=== PATIENT | female | born 1960 | race Caucasian/White ===

== ENCOUNTER 2017-07-28 08:07 | Emergency (ER) | payer BC, MEDICAID ==
[~2017-07-28] VITALS: Ht 157.5 cm; Wt 87.2 kg
[2017-07-28 09:13] LABS: BASOPHILS % (AUTO) 0.4 % (0.0-2.0); EOSINOPHILS % (AUTO) 0.1 % (1.0-6.0); HEMATOCRIT 40.2 % (36-46); HEMOGLOBIN 14.3 g/dL (12.0-16.0); LYMPHOCYTES # (AUTO) 1.1 K/uL (1.0-4.8); LYMPHOCYTES % (AUTO) 9.6 % (22.0-44.0); MEAN CORPUSCULAR HEMOGLOBIN 30.8 pg (26.0-34.0); MEAN CORPUSCULAR HGB CONC 35.6 G/dL (31.0-37.0); MEAN CORPUSCULAR VOLUME 87 fL (80-100); MONOCYTES # (AUTO) 0.3 K/uL (0.1-1.0); MONOCYTES % (AUTO) 2.8 % (2.0-9.0); NEUTROPHILS # (AUTO) 10.2 K/uL (1.8-7.7); PLATELET COUNT (AUTO) 367 K/uL (150-450); RED BLOOD CELL COUNT(AUTO) 4.65 MIL/uL (4.00-5.20); RED CELL DISTRIBUTION WIDTH 13.1 % (11.5-14.5)
[2017-07-28 09:15] LABS: NEUTROPHILS % (AUTO) 87.1 % (40.0-70.0)
[2017-07-28 09:22] LABS: ANION GAP 11 mmol/L (8-16); CALCIUM, TOTAL 9.6 mg/dL (8.8-10.5); CARBON DIOXIDE 26 mmol/L (22-29); CHLORIDE 101 mmol/L (98-107); CREATININE 0.91 mg/dL (0.60-1.30); GLOMERULAR FILTR. RATE CALC > 60 mL/min (>60); GLUCOSE,RANDOM 206 mg/dL (70-110); POTASSIUM 3.7 mmol/L (3.5-5.1); SODIUM SERUM 138 mmol/L (136-145); UREA NITROGEN, BLOOD 14 mg/dL (7-18)
[2017-07-28 09:25] LABS: ALANINE AMINOTRANSFERASE 31 U/L (12-78); ALBUMIN 4.2 g/dL (3.4-5.0); ALKALINE PHOSPHATASE 113 U/L (46-116); ASPARTATE AMINOTRANSFERASE 24 U/L (15-37); BILIRUBIN,TOTAL 0.3 mg/dL (0.1-1.0); TOTAL PROTEIN, SERUM 8.5 g/dL (6.4-8.2)
[2017-07-28] MEDS ORDERED: ARIP15TA2 PO (09:59)
[2017-07-28] MEDS ORDERED: TRAZ-147 PO (09:59)
[2017-07-28 10:17] LABS: AMPHET/METH SCREEN,URINE NEGATIVE (NEGATIVE); BARBITURATE SCREEN, URINE NEGATIVE (NEGATIVE); BENZODIAZEPINES SCREEN,URINE NEGATIVE (NEGATIVE); CANNABINOID SCREEN,URINE NEGATIVE (NEGATIVE); COCAINE SCREEN,URINE NEGATIVE (NEGATIVE); METHADONE SCREEN, URINE NEGATIVE (NEGATIVE); OPIATE SCREEN,URINE NEGATIVE (NEGATIVE)
[2017-07-28 10:19] LABS: PHENCYCLIDINE SCREEN,URINE NEGATIVE (NEGATIVE)
[2017-07-28 12:18] VITALS: BP 121/77
== END 2017-07-28 14:55 | disposition home or self-care (01) ==
LOC: EMS 08:09
DX: F22 Delusional disorders (principal); F17.210 Nicotine dependence, cigarettes, uncomplicated
CPT/HCPCS: 36415; 80053; 80307; 85025; 99285; G0480

== ENCOUNTER 2022-04-19 19:15 | Inpatient (IN) | payer BC, MEDICAID, OTHER ==
[~2022-04-19] VITALS: Ht 160 cm; Wt 87.6 kg
[~2022-04-19 19:15] MED LIST: ARIP15TA27 PO; TRAZ-257 PO
[2022-04-19 21:35] LABS: EOSINOPHILS % (AUTO) 1.1 % (1.0-6.0); HEMATOCRIT 39.2 % (36-46); HEMOGLOBIN 13.3 g/dL (12.0-16.0); LYMPHOCYTES # (AUTO) 2.7 K/uL (1.0-4.8); LYMPHOCYTES % (AUTO) 28.9 % (22.0-44.0); MEAN CORPUSCULAR HEMOGLOBIN 30.4 pg (26.0-34.0); MEAN CORPUSCULAR VOLUME 90 fL (80-100); MONOCYTES # (AUTO) 0.5 K/uL (0.1-1.0); MONOCYTES % (AUTO) 5.6 % (2.0-9.0); NEUTROPHILS % (AUTO) 63.4 % (40.0-70.0); PLATELET COUNT (AUTO) 428 K/uL (150-450); RED BLOOD CELL COUNT(AUTO) 4.38 MIL/uL (4.00-5.20); RED CELL DISTRIBUTION WIDTH 13.7 % (11.5-14.5)
[2022-04-19 21:45] LABS: ANION GAP 6 mmol/L (8-16); CALCIUM, TOTAL 9.1 mg/dL (8.8-10.5); CARBON DIOXIDE 28 mmol/L (22-29); CHLORIDE 104 mmol/L (98-107); CREATININE 0.54 mg/dL (0.60-1.30); GLUCOSE,RANDOM 150 mg/dL (70-110); POTASSIUM 3.8 mmol/L (3.5-5.1); SODIUM SERUM 138 mmol/L (136-145); UREA NITROGEN, BLOOD 6 mg/dL (7-18)
[2022-04-19 21:47] LABS: GLOMERULAR FILTR. RATE CALC > 60 mL/min (>60)
[2022-04-19 21:50] LABS: ALANINE AMINOTRANSFERASE 18 U/L (12-78); ALBUMIN 3.8 g/dL (3.4-5.0); ALKALINE PHOSPHATASE 83 U/L (46-116); ASPARTATE AMINOTRANSFERASE 18 U/L (15-37); BILIRUBIN,TOTAL 0.3 mg/dL (0.1-1.0); TOTAL PROTEIN, SERUM 7.9 g/dL (6.4-8.2)
[2022-04-19 23:31] LABS: COVID AG,FIA SOURCE NASOPHARYNGEAL
[2022-04-20 03:29] VITALS: BP 140/68
[2022-04-20 08:00] VITALS: BP 143/88
[2022-04-20 09:25] LABS: APPEARANCE,URINE HAZY (CLEAR); BILIRUBIN,URINE NEGATIVE (NEGATIVE); GLUCOSE, URINE (UA) >=1000 mg/dL (NEGATIVE); KETONES,URINE TRACE mg/dL (NEGATIVE); LEUKOCYTE ESTERASE ,URINE NEGATIVE (NEGATIVE); NITRATE,URINE NEGATIVE (NEGATIVE); OCCULT BLOOD,URINE NEGATIVE (NEGATIVE); PROTEIN,URINE TRACE mg/dL (NEGATIVE); SPECIFIC GRAVITIY, URINE 1.021 (1.003-1.030)
[2022-04-20 09:29] LABS: AMPHET/METH SCREEN,URINE NEGATIVE (NEGATIVE); BARBITURATE SCREEN, URINE NEGATIVE (NEGATIVE); BENZODIAZEPINES SCREEN,URINE POSITIVE (NEGATIVE); CANNABINOID SCREEN,URINE NEGATIVE (NEGATIVE); COCAINE SCREEN,URINE NEGATIVE (NEGATIVE); METHADONE SCREEN, URINE NEGATIVE (NEGATIVE); OPIATE SCREEN,URINE NEGATIVE (NEGATIVE)
[2022-04-20 09:30] LABS: PHENCYCLIDINE SCREEN,URINE NEGATIVE (NEGATIVE)
[2022-04-20 10:00] LABS: BACTERIA,URINE None Seen /HPF (None Seen); RBC,URINE 0-2 /HPF (0-2); WBC,URINE 0-2 /HPF (0-5)
[2022-04-20] MEDS: ARIPiprazole 15 MG TABLET PO SCH ×2 (10:08→16:47)
[2022-04-20] MEDS ORDERED: CloNIDine HCL 0.1 MG TABLET PO PRN (16:00)
[2022-04-20] MEDS ORDERED: GuaiFENesin/D-METHORPHAN [SUGAR-FREE] 200-20MG/10 ML SYRUP UDCUP PO PRN (16:00)
[2022-04-20] MEDS ORDERED: NICOTINE 14 MG/24 HOUR PATCH TD PRN (16:00)
[2022-04-20] MEDS ORDERED: MAGNESIUM HYDROXIDE SUSPENSION 30 ML UDCUP PO PRN (16:00)
[2022-04-20] MEDS ORDERED: MAG HYDROX/AL HYDROX/SIMETH ES 30 ML SUSPENSION UDCUP PO PRN (16:00)
[2022-04-20] MEDS ORDERED: ONDANSETRON HCL 4 MG TABLET PO PRN (16:00)
[2022-04-20] MEDS ORDERED: LOPERAMIDE HCL 2 MG CAPSULE PO PRN (16:00)
[2022-04-20] MEDS ORDERED: PETROLATUM,WHITE 28 GM JELLY TP PRN (16:00)
[2022-04-20] MEDS ORDERED: ACETAMINOPHEN 325 MG TABLET PO PRN (16:00)
[2022-04-20] MEDS ORDERED: DOCUSATE SODIUM 100 MG CAPSULE PO PRN (16:00)
[2022-04-20] MEDS ORDERED: ALBUTEROL SULFATE HFA 90 MCG/PUFF 8 GM INHALER IH PRN (16:00)
[2022-04-20] MEDS ORDERED: IBUPROFEN 400 MG TABLET PO PRN (16:00)
[2022-04-20 16:20] VITALS: BP 133/63
[2022-04-20] MEDS: LORazepam 2 MG TABLET PO PRN (20:00)
[2022-04-20] MEDS: HALOPERIDOL 5 MG TABLET PO PRN (20:00)
[2022-04-20] MEDS: TraZODone HCL 100 MG TABLET PO SCH (20:02)
[2022-04-21] MEDS: ZOLPIDEM TARTRATE 10 MG TABLET PO PRN (02:36)
[2022-04-21] MEDS: ARIPiprazole 15 MG TABLET PO SCH ×2 (08:39→16:46)
[2022-04-21 09:07] VITALS: BP 150/83
[2022-04-21 16:38] VITALS: BP 147/75
[2022-04-21] MEDS: HALOPERIDOL 5 MG TABLET PO PRN (19:50)
[2022-04-21] MEDS: LORazepam 2 MG TABLET PO PRN (19:50)
[2022-04-21] MEDS: TraZODone HCL 100 MG TABLET PO SCH (21:13)
[2022-04-22] MEDS: ARIPiprazole 15 MG TABLET PO SCH ×2 (08:36→17:18)
[2022-04-22] MEDS: HALOPERIDOL 5 MG TABLET PO PRN ×2 (08:36→20:15)
[2022-04-22 08:47] VITALS: BP 154/78
[2022-04-22 16:05] VITALS: BP 147/80
[2022-04-22] MEDS: LORazepam 2 MG TABLET PO PRN (20:15)
[2022-04-22] MEDS: TraZODone HCL 100 MG TABLET PO SCH (20:57)
[2022-04-22] MEDS: ZOLPIDEM TARTRATE 10 MG TABLET PO PRN (23:23)
[2022-04-23 08:49] VITALS: BP 151/80
[2022-04-23] MEDS: ARIPiprazole 15 MG TABLET PO SCH ×2 (09:45→16:26)
[2022-04-23 16:14] VITALS: BP 140/72
[2022-04-23] MEDS: HALOPERIDOL 5 MG TABLET PO PRN (19:30)
[2022-04-23] MEDS: LORazepam 2 MG TABLET PO PRN (19:30)
[2022-04-23] MEDS: TraZODone HCL 100 MG TABLET PO SCH (20:56)
[2022-04-23] MEDS: ZOLPIDEM TARTRATE 10 MG TABLET PO PRN (21:05)
[2022-04-24] MEDS: ARIPiprazole 15 MG TABLET PO SCH ×2 (08:17→17:09)
[2022-04-24 08:42] VITALS: BP 128/58
[2022-04-24 08:43] VITALS: BP 128/58
[2022-04-24 16:02] VITALS: BP 135/80
[2022-04-24] MEDS: TraZODone HCL 100 MG TABLET PO SCH (20:33)
[2022-04-25] MEDS: ARIPiprazole 15 MG TABLET PO SCH ×2 (08:31→16:31)
[2022-04-25 08:55] VITALS: BP 159/68
[2022-04-25 16:04] VITALS: BP 152/76
[2022-04-25] MEDS: TraZODone HCL 100 MG TABLET PO SCH (20:48)
[2022-04-25] MEDS: ZOLPIDEM TARTRATE 10 MG TABLET PO PRN (21:57)
[2022-04-26 04:25] LABS: COVID AG,FIA SOURCE NASAL SWAB
[2022-04-26 08:32] VITALS: BP 128/59
[2022-04-26] MEDS: ARIPiprazole 15 MG TABLET PO SCH ×2 (08:52→17:29)
[2022-04-26 16:07] VITALS: BP 139/61
[2022-04-26] MEDS: TraZODone HCL 100 MG TABLET PO SCH (21:03)
[2022-04-27 08:25] VITALS: BP 148/73
[2022-04-27] MEDS: ARIPiprazole 15 MG TABLET PO SCH ×2 (08:33→16:09)
[2022-04-27 16:03] VITALS: BP 132/64
[2022-04-27] MEDS: TraZODone HCL 100 MG TABLET PO SCH (20:56)
[2022-04-28] MEDS: ARIPiprazole 15 MG TABLET PO SCH ×2 (07:46→16:21)
[2022-04-28 08:19] VITALS: BP 130/72
[2022-04-28 16:04] VITALS: BP 142/71
[2022-04-28] MEDS: TraZODone HCL 100 MG TABLET PO SCH (20:21)
[2022-04-28] MEDS: ZOLPIDEM TARTRATE 10 MG TABLET PO PRN (23:03)
[2022-04-29] MEDS: ARIPiprazole 15 MG TABLET PO SCH ×2 (08:21→16:12)
[2022-04-29 08:30] VITALS: BP 146/78
[2022-04-29 16:09] VITALS: BP 143/72
[2022-04-29] MEDS: TraZODone HCL 100 MG TABLET PO SCH (20:45)
[2022-04-30] MEDS: ARIPiprazole 15 MG TABLET PO SCH (08:12)
[2022-04-30 09:44] VITALS: BP 135/69
[2022-04-30] MEDS ORDERED: ARIP15TA27 PO (10:57)
[2022-04-30] MEDS ORDERED: TRAZ-257 PO (10:57)
== END 2022-04-30 14:02 | disposition home or self-care (01) | DRG 750 ==
LOC: EMS 19:20 → 3EC 04-20 00:01
PROVIDERS: ADMIT Psychiatry & Neurology Child & Adolescent Psychiatry; ATTEND Psychiatry & Neurology Child & Adolescent Psychiatry
DX: F20.9 Schizophrenia, unspecified (principal); R45.851 Suicidal ideations; F41.9 Anxiety disorder, unspecified; F17.200 Nicotine dependence, unspecified, uncomplicated; R73.9 Hyperglycemia, unspecified; Z20.822 Contact with and (suspected) exposure to COVID-19; R81 Glycosuria; E66.9 Obesity, unspecified; Z71.6 Tobacco abuse counseling; Z68.34 Body mass index [BMI] 34.0-34.9, adult
CPT/HCPCS: 80053; 80307; 81001; 85025; 99285; G0480

== ENCOUNTER 2022-05-23 18:29 | Inpatient (IN) | payer MEDICAID, OTHER ==
[~2022-05-23] VITALS: Ht 160 cm; Wt 89.2 kg
[2022-05-23 20:10] LABS: BASOPHILS % (AUTO) 0.5 % (0.0-2.0); EOSINOPHILS % (AUTO) 0 % (1.0-6.0); HEMATOCRIT 41.5 % (36-46); LYMPHOCYTES % (AUTO) 8.6 % (22.0-44.0); MEAN CORPUSCULAR HEMOGLOBIN 30.4 pg (26.0-34.0); MEAN CORPUSCULAR HGB CONC 33.8 G/dL (31.0-37.0); MEAN CORPUSCULAR VOLUME 90 fL (80-100); MONOCYTES # (AUTO) 0.3 K/uL (0.1-1.0); MONOCYTES % (AUTO) 2.4 % (2.0-9.0); NEUTROPHILS # (AUTO) 10.2 K/uL (1.8-7.7); PLATELET COUNT (AUTO) 410 K/uL (150-450); RED BLOOD CELL COUNT(AUTO) 4.61 MIL/uL (4.00-5.20); RED CELL DISTRIBUTION WIDTH 13.7 % (11.5-14.5)
[2022-05-23 20:11] LABS: NEUTROPHILS % (AUTO) 88.5 % (40.0-70.0)
[2022-05-23 20:21] LABS: ANION GAP 12 mmol/L (8-16); CALCIUM, TOTAL 9.2 mg/dL (8.8-10.5); CARBON DIOXIDE 24 mmol/L (22-29); CHLORIDE 104 mmol/L (98-107); CREATININE 0.91 mg/dL (0.60-1.30); GLOMERULAR FILTR. RATE CALC > 60 mL/min (>60); GLUCOSE,RANDOM 235 mg/dL (70-110); POTASSIUM 3.5 mmol/L (3.5-5.1); SODIUM SERUM 140 mmol/L (136-145); UREA NITROGEN, BLOOD 11 mg/dL (7-18)
[2022-05-23 20:34] LABS: ALANINE AMINOTRANSFERASE 19 U/L (12-78); ALBUMIN 4.5 g/dL (3.4-5.0); ALKALINE PHOSPHATASE 80 U/L (46-116); ASPARTATE AMINOTRANSFERASE 22 U/L (15-37); BILIRUBIN,TOTAL 0.3 mg/dL (0.1-1.0); THYROID STIMULATING HORMONE 1.72 uIU/mL (0.36-3.74); TOTAL PROTEIN, SERUM 8.2 g/dL (6.4-8.2)
[2022-05-23] MEDS ORDERED: LORazepam 2 MG/ML VIAL IM ONE (22:15)
[2022-05-23] MEDS ORDERED: HALOPERIDOL LACTATE 5 MG/ML VIAL IM ONE (22:15)
[2022-05-23] MEDS ORDERED: DiphenhydrAMINE HCL 50 MG/ML VIAL IM ONE (22:15)
[2022-05-23 23:01] LABS: COVID AG,FIA SOURCE NASOPHARYNGEAL
[2022-05-24] MEDS ORDERED: ZOLPIDEM TARTRATE 10 MG TABLET PO PRN
[2022-05-24 08:28] LABS: AMPHET/METH SCREEN,URINE POSITIVE (NEGATIVE); BARBITURATE SCREEN, URINE NEGATIVE (NEGATIVE); BENZODIAZEPINES SCREEN,URINE NEGATIVE (NEGATIVE); CANNABINOID SCREEN,URINE NEGATIVE (NEGATIVE); COCAINE SCREEN,URINE NEGATIVE (NEGATIVE); METHADONE SCREEN, URINE NEGATIVE (NEGATIVE); OPIATE SCREEN,URINE NEGATIVE (NEGATIVE); PHENCYCLIDINE SCREEN,URINE NEGATIVE (NEGATIVE)
[2022-05-24 08:31] LABS: APPEARANCE,URINE CLEAR (CLEAR); BILIRUBIN,URINE NEGATIVE (NEGATIVE); GLUCOSE, URINE (UA) >=1000 mg/dL (NEGATIVE); KETONES,URINE 40-60 mg/dL (NEGATIVE); LEUKOCYTE ESTERASE ,URINE LARGE (NEGATIVE); NITRATE,URINE NEGATIVE (NEGATIVE); OCCULT BLOOD,URINE NEGATIVE (NEGATIVE); PROTEIN,URINE NEGATIVE (NEGATIVE); SPECIFIC GRAVITIY, URINE 1.013 (1.003-1.030); UROBILINOGEN,URINE <=1.0 mg/dL (<=1.0)
[2022-05-24 08:43] LABS: BACTERIA,URINE None Seen /HPF (None Seen); RBC,URINE 0-2 /HPF (0-2); SQUAMOUS EPITHELIAL CELL,UR Few /LPF (None Seen); WBC,URINE 26-50 /HPF (0-5)
[2022-05-24 09:45] VITALS: BP 127/79
[2022-05-24] MEDS ORDERED: DiphenhydrAMINE HCL 50 MG/ML VIAL IM ONE ×2 (09:45→11:15)
[2022-05-24] MEDS ORDERED: LORazepam 2 MG/ML VIAL IM ONE ×2 (09:45→11:15)
[2022-05-24] MEDS ORDERED: HALOPERIDOL LACTATE 5 MG/ML VIAL IM ONE (09:45)
[2022-05-24 11:01] LABS: GLUCOMETER DEV NAME(LOC) BV3S.; GLUCOSE,POINT OF CARE 140 MG/DL (70-110)
[2022-05-24] MEDS ORDERED: ChlorproMAZINE HCL 50 MG/2 ML AMP IM ONE (11:15)
[2022-05-24] MEDS: OLANZapine 10 MG TABLET PO SCH (17:38)
[2022-05-25] MEDS: HALOPERIDOL 5 MG TABLET PO PRN (03:09)
[2022-05-25] MEDS: LORazepam 2 MG TABLET PO PRN (03:09)
[2022-05-25] MEDS ORDERED: LORazepam 2 MG/ML VIAL ONE (08:40)
[2022-05-25] MEDS ORDERED: DiphenhydrAMINE HCL 50 MG/ML VIAL ONE (08:40)
[2022-05-25] MEDS ORDERED: HALOPERIDOL LACTATE 5 MG/ML VIAL ONE (08:40)
[2022-05-25] MEDS: OLANZapine 10 MG TABLET PO SCH ×2 (08:43→16:49)
[2022-05-25] MEDS ORDERED: LORazepam 2 MG/ML VIAL IM ONE ×2 (08:45→16:30)
[2022-05-25] MEDS ORDERED: DiphenhydrAMINE HCL 50 MG/ML VIAL IM ONE ×2 (08:45→16:30)
[2022-05-25] MEDS ORDERED: HALOPERIDOL LACTATE 5 MG/ML VIAL IM ONE ×2 (08:45→16:30)
[2022-05-25 08:54] VITALS: BP 111/69
[2022-05-26] MEDS: LORazepam 2 MG TABLET PO PRN ×3 (08:21→21:08)
[2022-05-26] MEDS: OLANZapine 10 MG TABLET PO SCH ×2 (08:21→17:03)
[2022-05-26] MEDS: HALOPERIDOL 5 MG TABLET PO PRN ×2 (08:58→20:57)
[2022-05-26 20:14] VITALS: BP 139/76
[2022-05-27 08:14] VITALS: BP 134/74
[2022-05-27] MEDS: HALOPERIDOL 5 MG TABLET PO PRN ×2 (08:21→16:11)
[2022-05-27] MEDS: LORazepam 2 MG TABLET PO PRN ×2 (08:21→16:11)
[2022-05-27] MEDS: OLANZapine 10 MG TABLET PO SCH ×2 (08:21→16:11)
[2022-05-27] MEDS ORDERED: LORazepam 2 MG/ML VIAL ONE (10:38)
[2022-05-27] MEDS ORDERED: HALOPERIDOL LACTATE 5 MG/ML VIAL ONE (10:39)
[2022-05-27] MEDS ORDERED: DiphenhydrAMINE HCL 50 MG/ML VIAL ONE (10:39)
[2022-05-27] MEDS ORDERED: LORazepam 2 MG/ML VIAL IM ONE (11:00)
[2022-05-27] MEDS ORDERED: HALOPERIDOL LACTATE 5 MG/ML VIAL IM ONE (11:00)
[2022-05-27] MEDS ORDERED: DiphenhydrAMINE HCL 50 MG/ML VIAL IM ONE (11:00)
[2022-05-27 20:18] VITALS: BP 151/72
[2022-05-28] MEDS: LORazepam 2 MG TABLET PO PRN ×2 (04:50→09:01)
[2022-05-28] MEDS: HALOPERIDOL 5 MG TABLET PO PRN ×2 (04:50→09:23)
[2022-05-28 08:30] VITALS: BP 170/90
[2022-05-28] MEDS: OLANZapine 10 MG TABLET PO SCH ×2 (09:00→16:44)
[2022-05-28] MEDS: AmLODIPine BESYLATE 2.5 MG TABLET PO SCH (09:01)
[2022-05-28] MEDS ORDERED: ACETAMINOPHEN 650 MG/20.3 ML SOLUTION UDCUP PO PRN (09:45)
[2022-05-28] MEDS ORDERED: IBUPROFEN 400 MG TABLET PO PRN (09:45)
[2022-05-28] MEDS ORDERED: ACETAMINOPHEN 325 MG TABLET PO PRN ×3 (10:00→11:45)
[2022-05-29 07:54] LABS: CHOL/HDL RATIO 4.3 (3.9-5.7)
[2022-05-29 08:48] VITALS: BP 129/67
[2022-05-29] MEDS: MULTIVITAMINS WITH MINERALS, THERAPEUTIC TABLET PO SCH (09:25)
[2022-05-29] MEDS: AmLODIPine BESYLATE 2.5 MG TABLET PO SCH (09:26)
[2022-05-29] MEDS: OLANZapine 10 MG TABLET PO SCH ×2 (09:26→19:08)
[2022-05-29] MEDS: LORazepam 2 MG TABLET PO PRN ×2 (11:00→14:39)
[2022-05-29] MEDS: HALOPERIDOL 5 MG TABLET PO PRN ×2 (11:00→14:39)
[2022-05-29 20:00] VITALS: BP 120/69
[2022-05-30 07:11] LABS: GLUCOMETER DEV NAME(LOC) POC.BV
[2022-05-30] MEDS: LORazepam 2 MG TABLET PO PRN ×2 (08:24→16:53)
[2022-05-30] MEDS: AmLODIPine BESYLATE 2.5 MG TABLET PO SCH (08:24)
[2022-05-30] MEDS: OLANZapine 10 MG TABLET PO SCH ×2 (08:24→16:53)
[2022-05-30] MEDS: MULTIVITAMINS WITH MINERALS, THERAPEUTIC TABLET PO SCH (08:24)
[2022-05-30 08:30] VITALS: BP 157/76
[2022-05-30 10:30] VITALS: BP 134/78
[2022-05-30 10:51] LABS: GLUCOMETER DEV NAME(LOC) POC.BV
[2022-05-30 20:03] VITALS: BP 136/70
[2022-05-31] MEDS: AmLODIPine BESYLATE 2.5 MG TABLET PO SCH (07:56)
[2022-05-31] MEDS: OLANZapine 10 MG TABLET PO SCH ×2 (07:56→17:00)
[2022-05-31] MEDS: HALOPERIDOL 5 MG TABLET PO PRN (07:57)
[2022-05-31] MEDS: LORazepam 2 MG TABLET PO PRN (07:57)
[2022-05-31] MEDS: MULTIVITAMINS WITH MINERALS, THERAPEUTIC TABLET PO SCH (08:00)
[2022-05-31] MEDS ORDERED: HALOPERIDOL LACTATE 5 MG/ML VIAL IM ONE (08:45)
[2022-05-31] MEDS ORDERED: LORazepam 2 MG/ML VIAL IM ONE (08:45)
[2022-05-31] MEDS ORDERED: DiphenhydrAMINE HCL 50 MG/ML VIAL IM ONE (08:45)
[2022-05-31] MEDS ORDERED: LORazepam 2 MG/ML VIAL ONE (08:45)
[2022-05-31] MEDS: VALPROIC ACID 250 MG/5 ML SOLUTION UDCUP PO SCH ×2 (09:46→17:00)
[2022-05-31 10:21] LABS: GLUCOMETER DEV NAME(LOC) BV3S.; GLUCOSE,POINT OF CARE 151 MG/DL (70-110)
[2022-05-31 10:44] VITALS: BP 166/82
[2022-05-31 14:00] VITALS: BP 174/81
[2022-05-31 14:15] VITALS: BP 145/51
[2022-05-31 15:15] VITALS: BP 174/81
[2022-05-31] MEDS ORDERED: TraZODone HCL 100 MG TABLET PO PRN (21:30)
[2022-05-31 21:45] VITALS: BP 133/67
[2022-05-31 22:40] VITALS: BP 133/67
[2022-06-01] MEDS ORDERED: MetFORMIN HCL 500 MG TABLET PO SCH (07:00)
[2022-06-01] MEDS: MULTIVITAMINS WITH MINERALS, THERAPEUTIC TABLET PO SCH (08:02)
[2022-06-01] MEDS: OLANZapine 10 MG TABLET PO SCH (08:02)
[2022-06-01] MEDS: AmLODIPine BESYLATE 2.5 MG TABLET PO SCH (08:02)
[2022-06-01] MEDS: VALPROIC ACID 250 MG/5 ML SOLUTION UDCUP PO SCH (08:02)
[2022-06-01] MEDS: LORazepam 2 MG TABLET PO PRN (08:03)
[2022-06-01 08:31] LABS: GLUCOMETER DEV NAME(LOC) BV3S.; GLUCOSE,POINT OF CARE 327 MG/DL (70-110)
[2022-06-01] MEDS ORDERED: VALP250S10 PO (09:30)
[2022-06-01] MEDS ORDERED: AMLO2.5T96 PO (09:32)
[2022-06-01] MEDS ORDERED: OLAN10TA74 PO (09:32)
[2022-06-01] MEDS ORDERED: METF-1211 PO (09:32)
[2022-06-01] MEDS ORDERED: VALP250S23 PO (17:28)
[2022-06-01] MEDS ORDERED: OLAN10 PO (17:28)
[2022-06-01] MEDS ORDERED: TRAZ-257 PO (17:28)
== END 2022-06-01 11:29 | disposition left against medical advice (07) | DRG 750 ==
LOC: EMS 18:54 → B3A 05-24 07:56
PROVIDERS: ADMIT Psychiatry & Neurology Child & Adolescent Psychiatry; ATTEND Psychiatry & Neurology Child & Adolescent Psychiatry
DX: F25.9 Schizoaffective disorder, unspecified (principal); Z91.199 Patient's noncompliance with other medical treatment and regimen due to unspecified reason; F17.200 Nicotine dependence, unspecified, uncomplicated; Z53.29 Procedure and treatment not carried out because of patient's decision for other reasons; Z20.822 Contact with and (suspected) exposure to COVID-19; Z78.1 Physical restraint status
CPT/HCPCS: 80053; 80061; 80307; 81001; 82962; 83036; 84443; 85025; 87081; 87086; 87186; 99285; G0480; J1200; J1630; J2060; J3230

== ENCOUNTER 2022-05-31 14:52 | Emergency (ER) | payer MEDICAID, OTHER ==
[~2022-05-31] VITALS: Ht 154.9 cm; Wt 68.2 kg
[2022-05-31 19:02] VITALS: BP 140/82
[2022-06-01] MEDS ORDERED: VALP250S10 PO (09:30)
[2022-06-01] MEDS ORDERED: METF-1211 PO (09:32)
[2022-06-01] MEDS ORDERED: OLAN10TA74 PO (09:32)
[2022-06-01] MEDS ORDERED: AMLO2.5T96 PO (09:32)
[2022-06-01] MEDS ORDERED: VALP250S23 PO (17:28)
[2022-06-01] MEDS ORDERED: TRAZ-257 PO (17:28)
[2022-06-01] MEDS ORDERED: OLAN10 PO (17:28)
== END 2022-05-31 20:56 | disposition home or self-care (01) ==
LOC: EMS 15:00
DX: S00.03XA Contusion of scalp, initial encounter (principal); F20.0 Paranoid schizophrenia; F17.210 Nicotine dependence, cigarettes, uncomplicated; X58.XXXA Exposure to other specified factors, initial encounter; Y93.89 Activity, other specified; Y92.89 Other specified places as the place of occurrence of the external cause; Y99.8 Other external cause status
CPT/HCPCS: 70450; 99284

== ENCOUNTER 2022-06-01 21:11 | Emergency (ER) | payer OTHER ==
[~2022-06-01] VITALS: Ht 154.9 cm; Wt 68.0 kg
[~2022-06-01 21:11] MED LIST changes: +AMLO2.5T96 PO; +METF-1211 PO; +OLAN10 PO; +OLAN10TA74 PO; +VALP250S10 PO; +VALP250S23 PO
[2022-06-01 22:57] LABS: BASOPHILS % (AUTO) 0.6 % (0.0-2.0); EOSINOPHILS % (AUTO) 1.9 % (1.0-6.0); HEMATOCRIT 40.1 % (36-46); HEMOGLOBIN 13.3 g/dL (12.0-16.0); LYMPHOCYTES # (AUTO) 2.1 K/uL (1.0-4.8); LYMPHOCYTES % (AUTO) 22.9 % (22.0-44.0); MEAN CORPUSCULAR HEMOGLOBIN 29.3 pg (26.0-34.0); MEAN CORPUSCULAR HGB CONC 33.1 G/dL (31.0-37.0); MEAN CORPUSCULAR VOLUME 89 fL (80-100); MONOCYTES # (AUTO) 0.5 K/uL (0.1-1.0); MONOCYTES % (AUTO) 5.2 % (2.0-9.0); NEUTROPHILS # (AUTO) 6.4 K/uL (1.8-7.7); NEUTROPHILS % (AUTO) 69.4 % (40.0-70.0); PLATELET COUNT (AUTO) 377 K/uL (150-450); RED BLOOD CELL COUNT(AUTO) 4.53 MIL/uL (4.00-5.20); RED CELL DISTRIBUTION WIDTH 13.8 % (11.5-14.5)
[2022-06-01 23:04] LABS: ANION GAP 13 mmol/L (8-16); CALCIUM, TOTAL 9.5 mg/dL (8.8-10.5); CARBON DIOXIDE 26 mmol/L (22-29); CHLORIDE 103 mmol/L (98-107); GLOMERULAR FILTR. RATE CALC > 60 mL/min (>60); GLUCOSE,RANDOM 231 mg/dL (70-110); POTASSIUM 3.7 mmol/L (3.5-5.1); SODIUM SERUM 142 mmol/L (136-145); UREA NITROGEN, BLOOD 15 mg/dL (7-18)
[2022-06-01 23:10] LABS: ALANINE AMINOTRANSFERASE 23 U/L (12-78); ALBUMIN 3.8 g/dL (3.4-5.0); ALKALINE PHOSPHATASE 97 U/L (46-116); ASPARTATE AMINOTRANSFERASE 12 U/L (15-37); BILIRUBIN,TOTAL 0.3 mg/dL (0.1-1.0); TOTAL PROTEIN, SERUM 7.7 g/dL (6.4-8.2)
[2022-06-01 23:33] LABS: COVID AG,FIA SOURCE NASOPHARYNGEAL
[2022-06-02 01:15] VITALS: BP 124/72
== END 2022-06-02 01:15 | disposition home or self-care (01) ==
LOC: EMS 21:12
DX: F20.9 Schizophrenia, unspecified (principal); F17.210 Nicotine dependence, cigarettes, uncomplicated; Z98.890 Other specified postprocedural states; Z20.822 Contact with and (suspected) exposure to COVID-19
CPT/HCPCS: 99284; 87426; 80053; 85025; G0480

== ENCOUNTER 2022-06-02 16:19 | Inpatient (IN) | payer MEDICAID, OTHER ==
[~2022-06-02] VITALS: Ht 160 cm; Wt 85.8 kg
[~2022-06-02 16:19] MED LIST changes: -ARIP15TA27 PO; -VALP250S10 PO; +VALP250S27 PO
[2022-06-02 19:43] LABS: BASOPHILS % (AUTO) 0.7 % (0.0-2.0); EOSINOPHILS % (AUTO) 1.4 % (1.0-6.0); HEMATOCRIT 40.4 % (36-46); HEMOGLOBIN 13.5 g/dL (12.0-16.0); LYMPHOCYTES % (AUTO) 24.4 % (22.0-44.0); MEAN CORPUSCULAR HEMOGLOBIN 29.6 pg (26.0-34.0); MEAN CORPUSCULAR HGB CONC 33.3 G/dL (31.0-37.0); MEAN CORPUSCULAR VOLUME 89 fL (80-100); MONOCYTES # (AUTO) 0.5 K/uL (0.1-1.0); MONOCYTES % (AUTO) 5.8 % (2.0-9.0); NEUTROPHILS # (AUTO) 5.6 K/uL (1.8-7.7); NEUTROPHILS % (AUTO) 67.7 % (40.0-70.0); PLATELET COUNT (AUTO) 368 K/uL (150-450); RED BLOOD CELL COUNT(AUTO) 4.55 MIL/uL (4.00-5.20); RED CELL DISTRIBUTION WIDTH 13.8 % (11.5-14.5)
[2022-06-02 19:45] LABS: ANION GAP 8 mmol/L (8-16); CALCIUM, TOTAL 9.4 mg/dL (8.8-10.5); CARBON DIOXIDE 28 mmol/L (22-29); CHLORIDE 104 mmol/L (98-107); CREATININE 0.62 mg/dL (0.60-1.30); GLOMERULAR FILTR. RATE CALC > 60 mL/min (>60); GLUCOSE,RANDOM 169 mg/dL (70-110); SODIUM SERUM 140 mmol/L (136-145); UREA NITROGEN, BLOOD 9 mg/dL (7-18)
[2022-06-02] MEDS ORDERED: HALOPERIDOL 5 MG TABLET PO PRN (19:45)
[2022-06-02] MEDS ORDERED: ZOLPIDEM TARTRATE 10 MG TABLET PO PRN (19:45)
[2022-06-02 19:53] LABS: ALANINE AMINOTRANSFERASE 22 U/L (12-78); ALKALINE PHOSPHATASE 102 U/L (46-116); ASPARTATE AMINOTRANSFERASE 20 U/L (15-37); BILIRUBIN,TOTAL 0.3 mg/dL (0.1-1.0); TOTAL PROTEIN, SERUM 7.9 g/dL (6.4-8.2); VALPROIC ACID 8 mcg/mL (50-100)
[2022-06-02 22:07] LABS: COVID AG,FIA SOURCE NASOPHARYNGEAL
[2022-06-02 23:00] VITALS: BP 136/69
[2022-06-02] MEDS: LORazepam 2 MG TABLET PO PRN (23:13)
[2022-06-03] MEDS ORDERED: IBUPROFEN 400 MG TABLET PO PRN ×2 (00:15→06:30)
[2022-06-03] MEDS ORDERED: MAGNESIUM HYDROXIDE SUSPENSION 30 ML UDCUP PO PRN ×2 (00:15→06:30)
[2022-06-03] MEDS ORDERED: LOPERAMIDE HCL 2 MG CAPSULE PO PRN ×2 (00:15→06:30)
[2022-06-03] MEDS ORDERED: ONDANSETRON HCL 4 MG TABLET PO PRN ×2 (00:15→06:30)
[2022-06-03] MEDS ORDERED: ACETAMINOPHEN 325 MG TABLET PO PRN ×2 (00:15→06:30)
[2022-06-03] MEDS ORDERED: DOCUSATE SODIUM 100 MG CAPSULE PO PRN ×2 (00:15→06:30)
[2022-06-03] MEDS ORDERED: GuaiFENesin/D-METHORPHAN [SUGAR-FREE] 200-20MG/10 ML SYRUP UDCUP PO PRN ×2 (00:15→06:30)
[2022-06-03] MEDS ORDERED: MAG HYDROX/AL HYDROX/SIMETH ES 30 ML SUSPENSION UDCUP PO PRN ×2 (00:15→06:30)
[2022-06-03] MEDS ORDERED: ALBUTEROL SULFATE HFA 90 MCG/PUFF 8 GM INHALER IH PRN ×2 (00:15→06:30)
[2022-06-03] MEDS ORDERED: PETROLATUM,WHITE 28 GM JELLY TP PRN ×2 (00:15→06:30)
[2022-06-03] MEDS ORDERED: CloNIDine HCL 0.1 MG TABLET PO PRN ×2 (00:15→06:30)
[2022-06-03] MEDS ORDERED: PNEUMOCOCCAL VACCINE POLYVALENT 0.5 ML VIAL [PPSV23] IM. ONE (01:15)
[2022-06-03] MEDS ORDERED: INFLUENZA VIRUS VACCINE QVS 2022-23 (6MO+)/PF 60 MCG/0.5 ML SYRINGE IM. ONE (01:15)
[2022-06-03] MEDS ORDERED: NICOTINE 14 MG/24 HOUR PATCH TD PRN (06:30)
[2022-06-03] MEDS: MetFORMIN HCL 500 MG TABLET PO SCH (06:35)
[2022-06-03] MEDS ORDERED: MetFORMIN HCL 500 MG TABLET PO SCH (07:30)
[2022-06-03] MEDS: AmLODIPine BESYLATE 2.5 MG TABLET PO SCH (11:12)
[2022-06-03 16:01] VITALS: BP 147/79
[2022-06-03] MEDS: OLANZapine 10 MG TABLET PO SCH (16:16)
[2022-06-03] MEDS: VALPROIC ACID 250 MG/5 ML SOLUTION UDCUP PO SCH (16:16)
[2022-06-04] MEDS: ZOLPIDEM TARTRATE 10 MG TABLET PO PRN ×2 (01:52→20:58)
[2022-06-04] MEDS: LORazepam 2 MG TABLET PO PRN ×2 (01:52→19:30)
[2022-06-04] MEDS: MetFORMIN HCL 500 MG TABLET PO SCH (06:36)
[2022-06-04 08:00] VITALS: BP 154/82
[2022-06-04] MEDS: VALPROIC ACID 250 MG/5 ML SOLUTION UDCUP PO SCH ×2 (08:16→16:15)
[2022-06-04] MEDS: OLANZapine 10 MG TABLET PO SCH ×2 (08:16→16:15)
[2022-06-04] MEDS: AmLODIPine BESYLATE 2.5 MG TABLET PO SCH (08:17)
[2022-06-04 08:34] LABS: EOSINOPHILS % (AUTO) 2.9 % (1.0-6.0); HEMATOCRIT 38.9 % (36-46); HEMOGLOBIN 13.1 g/dL (12.0-16.0); LYMPHOCYTES # (AUTO) 2.2 K/uL (1.0-4.8); LYMPHOCYTES % (AUTO) 29.4 % (22.0-44.0); MEAN CORPUSCULAR HEMOGLOBIN 29.9 pg (26.0-34.0); MEAN CORPUSCULAR HGB CONC 33.7 G/dL (31.0-37.0); MEAN CORPUSCULAR VOLUME 89 fL (80-100); MONOCYTES # (AUTO) 0.4 K/uL (0.1-1.0); MONOCYTES % (AUTO) 5.4 % (2.0-9.0); NEUTROPHILS # (AUTO) 4.5 K/uL (1.8-7.7); NEUTROPHILS % (AUTO) 61.3 % (40.0-70.0); PLATELET COUNT (AUTO) 336 K/uL (150-450); RED BLOOD CELL COUNT(AUTO) 4.38 MIL/uL (4.00-5.20); RED CELL DISTRIBUTION WIDTH 13.3 % (11.5-14.5)
[2022-06-04 09:05] LABS: ALANINE AMINOTRANSFERASE 17 U/L (12-78); ALBUMIN 3.3 g/dL (3.4-5.0); ALKALINE PHOSPHATASE 97 U/L (46-116); ANION GAP 8 mmol/L (8-16); ASPARTATE AMINOTRANSFERASE 13 U/L (15-37); BILIRUBIN,TOTAL 0.2 mg/dL (0.1-1.0); CALCIUM, TOTAL 8.8 mg/dL (8.8-10.5); CARBON DIOXIDE 28 mmol/L (22-29); CHLORIDE 103 mmol/L (98-107); CREATININE 0.66 mg/dL (0.60-1.30); GLOMERULAR FILTR. RATE CALC > 60 mL/min (>60); GLUCOSE,RANDOM 208 mg/dL (70-110); SODIUM SERUM 139 mmol/L (136-145); THYROID STIMULATING HORMONE 3.27 uIU/mL (0.36-3.74); UREA NITROGEN, BLOOD 13 mg/dL (7-18)
[2022-06-04 12:22] LABS: CHOL/HDL RATIO 4.1 (3.9-5.7); CHOLESTEROL 182 mg/dL (131-200); HDL CHOLESTEROL 44 mg/dL (40-60); LDL CHOL (CALC.) 106 mg/dL (0-130); TRIGLYCERIDES 161 mg/dL (15-150)
[2022-06-04 16:02] VITALS: BP 119/57
[2022-06-04 16:11] VITALS: BP 119/57
[2022-06-04 18:12] LABS: GLUCOMETER DEV NAME(LOC) 3EX.2; GLUCOSE,POINT OF CARE 226 MG/DL (70-110)
[2022-06-04 20:59] VITALS: BP 105/63
[2022-06-05 05:26] LABS: GLUCOMETER DEV NAME(LOC) 3EX.2; GLUCOSE,POINT OF CARE 220 MG/DL (70-110)
[2022-06-05 05:40] LABS: APPEARANCE,URINE CLEAR (CLEAR); BILIRUBIN,URINE NEGATIVE (NEGATIVE); GLUCOSE, URINE (UA) 150-200 mg/dL (NEGATIVE); KETONES,URINE NEGATIVE (NEGATIVE); LEUKOCYTE ESTERASE ,URINE TRACE (NEGATIVE); NITRATE,URINE NEGATIVE (NEGATIVE); OCCULT BLOOD,URINE NEGATIVE (NEGATIVE); PROTEIN,URINE NEGATIVE (NEGATIVE); SPECIFIC GRAVITIY, URINE 1.018 (1.003-1.030); UROBILINOGEN,URINE <=1.0 mg/dL (<=1.0)
[2022-06-05 05:47] LABS: AMPHET/METH SCREEN,URINE NEGATIVE (NEGATIVE); BARBITURATE SCREEN, URINE NEGATIVE (NEGATIVE); BENZODIAZEPINES SCREEN,URINE NEGATIVE (NEGATIVE); CANNABINOID SCREEN,URINE NEGATIVE (NEGATIVE); COCAINE SCREEN,URINE NEGATIVE (NEGATIVE); METHADONE SCREEN, URINE NEGATIVE (NEGATIVE); OPIATE SCREEN,URINE NEGATIVE (NEGATIVE); PHENCYCLIDINE SCREEN,URINE NEGATIVE (NEGATIVE)
[2022-06-05 06:05] LABS: BACTERIA,URINE None Seen /HPF (None Seen); RBC,URINE None Seen /HPF (0-2); SQUAMOUS EPITHELIAL CELL,UR Few /LPF (None Seen); WBC,URINE 0-2 /HPF (0-5)
[2022-06-05] MEDS: MetFORMIN HCL 500 MG TABLET PO SCH (06:32)
[2022-06-05 08:02] VITALS: BP 125/81
[2022-06-05] MEDS: VALPROIC ACID 250 MG/5 ML SOLUTION UDCUP PO SCH ×2 (08:19→16:32)
[2022-06-05] MEDS: OLANZapine 10 MG TABLET PO SCH ×2 (08:19→16:32)
[2022-06-05] MEDS: AmLODIPine BESYLATE 2.5 MG TABLET PO SCH (08:19)
[2022-06-05 16:09] VITALS: BP 124/77
[2022-06-05 16:46] LABS: GLUCOMETER DEV NAME(LOC) 3EX.2; GLUCOSE,POINT OF CARE 176 MG/DL (70-110)
[2022-06-05 20:31] VITALS: BP 125/75
[2022-06-05] MEDS: ZOLPIDEM TARTRATE 10 MG TABLET PO PRN (20:59)
[2022-06-05] MEDS: LORazepam 2 MG TABLET PO PRN (22:44)
[2022-06-06] MEDS: MetFORMIN HCL 500 MG TABLET PO SCH (06:34)
[2022-06-06 06:56] LABS: GLUCOMETER DEV NAME(LOC) 3EX.2; GLUCOSE,POINT OF CARE 157 MG/DL (70-110)
[2022-06-06] MEDS: OLANZapine 10 MG TABLET PO SCH ×2 (08:15→17:19)
[2022-06-06] MEDS: VALPROIC ACID 250 MG/5 ML SOLUTION UDCUP PO SCH ×2 (08:16→17:19)
[2022-06-06] MEDS: AmLODIPine BESYLATE 2.5 MG TABLET PO SCH (08:16)
[2022-06-06 08:19] VITALS: BP 154/83
[2022-06-06 15:56] LABS: GLUCOMETER DEV NAME(LOC) 3EX.2; GLUCOSE,POINT OF CARE 190 MG/DL (70-110)
[2022-06-06 16:29] VITALS: BP 130/65
[2022-06-06 21:04] VITALS: BP 135/70
[2022-06-07] MEDS: MetFORMIN HCL 500 MG TABLET PO SCH (06:36)
[2022-06-07 07:11] LABS: GLUCOMETER DEV NAME(LOC) 3EX.2; GLUCOSE,POINT OF CARE 174 MG/DL (70-110)
[2022-06-07 08:10] VITALS: BP 143/73
[2022-06-07] MEDS: OLANZapine 10 MG TABLET PO SCH ×2 (08:20→16:09)
[2022-06-07] MEDS: AmLODIPine BESYLATE 2.5 MG TABLET PO SCH (08:20)
[2022-06-07] MEDS: VALPROIC ACID 250 MG/5 ML SOLUTION UDCUP PO SCH ×2 (08:21→16:11)
[2022-06-07 15:41] LABS: GLUCOMETER DEV NAME(LOC) 3EX.2; GLUCOSE,POINT OF CARE 222 MG/DL (70-110)
[2022-06-07 16:09] VITALS: BP 130/76
[2022-06-07 20:40] VITALS: BP 131/82
[2022-06-08] MEDS: MetFORMIN HCL 500 MG TABLET PO SCH (06:32)
[2022-06-08 06:56] LABS: GLUCOMETER DEV NAME(LOC) 3EX.2; GLUCOSE,POINT OF CARE 167 MG/DL (70-110)
[2022-06-08 07:57] LABS: COVID AG,FIA SOURCE NASAL SWAB
[2022-06-08 08:26] VITALS: BP 143/78
[2022-06-08] MEDS: AmLODIPine BESYLATE 2.5 MG TABLET PO SCH (08:55)
[2022-06-08] MEDS: OLANZapine 10 MG TABLET PO SCH ×2 (08:55→16:16)
[2022-06-08] MEDS: VALPROIC ACID 250 MG/5 ML SOLUTION UDCUP PO SCH ×2 (08:56→16:17)
[2022-06-08 16:57] LABS: GLUCOMETER DEV NAME(LOC) 3EX.2; GLUCOSE,POINT OF CARE 247 MG/DL (70-110)
[2022-06-09 06:26] LABS: GLUCOMETER DEV NAME(LOC) 3EX.2; GLUCOSE,POINT OF CARE 155 MG/DL (70-110)
[2022-06-09] MEDS: MetFORMIN HCL 500 MG TABLET PO SCH (06:55)
[2022-06-09 08:10] VITALS: BP 129/64
[2022-06-09] MEDS: OLANZapine 10 MG TABLET PO SCH ×2 (08:35→16:31)
[2022-06-09] MEDS: AmLODIPine BESYLATE 2.5 MG TABLET PO SCH (08:35)
[2022-06-09] MEDS: VALPROIC ACID 250 MG/5 ML SOLUTION UDCUP PO SCH ×2 (08:35→16:32)
[2022-06-09 16:09] VITALS: BP 121/64
[2022-06-09 17:26] LABS: GLUCOMETER DEV NAME(LOC) 3EX.2; GLUCOSE,POINT OF CARE 224 MG/DL (70-110)
[2022-06-09] MEDS: NICOTINE 14 MG/24 HOUR PATCH TD PRN (18:18)
[2022-06-09 21:08] VITALS: BP 145/75
[2022-06-10] MEDS: MetFORMIN HCL 500 MG TABLET PO SCH (06:52)
[2022-06-10 07:26] LABS: GLUCOMETER DEV NAME(LOC) 3EX.2; GLUCOSE,POINT OF CARE 169 MG/DL (70-110)
[2022-06-10] MEDS: AmLODIPine BESYLATE 2.5 MG TABLET PO SCH (08:13)
[2022-06-10] MEDS: VALPROIC ACID 250 MG/5 ML SOLUTION UDCUP PO SCH ×2 (08:13→16:19)
[2022-06-10] MEDS: OLANZapine 10 MG TABLET PO SCH ×2 (08:13→16:19)
[2022-06-10 09:33] VITALS: BP 125/72
[2022-06-10 16:30] VITALS: BP 118/61
[2022-06-10 16:46] LABS: GLUCOMETER DEV NAME(LOC) 3EX.2; GLUCOSE,POINT OF CARE 252 MG/DL (70-110)
[2022-06-11 07:01] LABS: GLUCOMETER DEV NAME(LOC) 3EX.2; GLUCOSE,POINT OF CARE 208 MG/DL (70-110)
[2022-06-11] MEDS: MetFORMIN HCL 500 MG TABLET PO SCH (07:02)
[2022-06-11] MEDS: NICOTINE 14 MG/24 HOUR PATCH TD PRN (08:12)
[2022-06-11] MEDS: OLANZapine 10 MG TABLET PO SCH ×2 (08:13→16:32)
[2022-06-11] MEDS: AmLODIPine BESYLATE 2.5 MG TABLET PO SCH (08:13)
[2022-06-11] MEDS: VALPROIC ACID 250 MG/5 ML SOLUTION UDCUP PO SCH ×2 (08:13→16:32)
[2022-06-11 08:41] VITALS: BP 136/97
[2022-06-11 16:59] VITALS: BP 130/80
[2022-06-11 17:01] LABS: GLUCOMETER DEV NAME(LOC) 3EX.2; GLUCOSE,POINT OF CARE 299 MG/DL (70-110)
[2022-06-12 06:41] LABS: GLUCOMETER DEV NAME(LOC) 3EX.2; GLUCOSE,POINT OF CARE 172 MG/DL (70-110)
[2022-06-12] MEDS: MetFORMIN HCL 500 MG TABLET PO SCH (06:59)
[2022-06-12 08:36] VITALS: BP 116/62
[2022-06-12] MEDS: AmLODIPine BESYLATE 2.5 MG TABLET PO SCH (09:13)
[2022-06-12] MEDS: OLANZapine 10 MG TABLET PO SCH ×2 (09:13→16:31)
[2022-06-12] MEDS: LORazepam 2 MG TABLET PO PRN (09:13)
[2022-06-12] MEDS: VALPROIC ACID 250 MG/5 ML SOLUTION UDCUP PO SCH ×2 (09:15→16:31)
[2022-06-12 16:30] VITALS: BP 114/64
[2022-06-12 16:31] LABS: GLUCOMETER DEV NAME(LOC) 3EX.2; GLUCOSE,POINT OF CARE 221 MG/DL (70-110)
[2022-06-13 06:31] LABS: GLUCOMETER DEV NAME(LOC) 3EX.2; GLUCOSE,POINT OF CARE 165 MG/DL (70-110)
[2022-06-13] MEDS: MetFORMIN HCL 500 MG TABLET PO SCH (06:38)
[2022-06-13 08:47] VITALS: BP 111/63
[2022-06-13] MEDS: AmLODIPine BESYLATE 2.5 MG TABLET PO SCH (08:48)
[2022-06-13] MEDS: OLANZapine 10 MG TABLET PO SCH ×2 (08:48→16:54)
[2022-06-13] MEDS: VALPROIC ACID 250 MG/5 ML SOLUTION UDCUP PO SCH ×2 (08:48→16:54)
[2022-06-13] MEDS: NICOTINE 14 MG/24 HOUR PATCH TD PRN (09:27)
[2022-06-13 16:11] LABS: GLUCOMETER DEV NAME(LOC) 3EX.2; GLUCOSE,POINT OF CARE 265 MG/DL (70-110)
[2022-06-13 16:24] VITALS: BP 126/71
[2022-06-14] MEDS: MetFORMIN HCL 500 MG TABLET PO SCH (06:35)
[2022-06-14 06:51] LABS: GLUCOMETER DEV NAME(LOC) 3EX.2; GLUCOSE,POINT OF CARE 141 MG/DL (70-110)
[2022-06-14 08:34] VITALS: BP 127/75
[2022-06-14] MEDS: AmLODIPine BESYLATE 2.5 MG TABLET PO SCH (08:43)
[2022-06-14] MEDS: VALPROIC ACID 250 MG/5 ML SOLUTION UDCUP PO SCH ×2 (08:43→16:22)
[2022-06-14] MEDS: OLANZapine 10 MG TABLET PO SCH ×2 (08:44→16:22)
[2022-06-14 16:21] LABS: GLUCOMETER DEV NAME(LOC) 3EX.2; GLUCOSE,POINT OF CARE 269 MG/DL (70-110)
[2022-06-14 16:38] VITALS: BP 109/58
[2022-06-14 20:11] VITALS: BP 110/60
[2022-06-15] MEDS: MetFORMIN HCL 500 MG TABLET PO SCH (06:43)
[2022-06-15 06:46] LABS: GLUCOMETER DEV NAME(LOC) 3EX.2; GLUCOSE,POINT OF CARE 163 MG/DL (70-110)
[2022-06-15 07:25] LABS: COVID AG,FIA SOURCE NASAL SWAB
[2022-06-15] MEDS: OLANZapine 10 MG TABLET PO SCH ×2 (08:08→16:25)
[2022-06-15] MEDS: VALPROIC ACID 250 MG/5 ML SOLUTION UDCUP PO SCH ×2 (08:09→16:25)
[2022-06-15] MEDS: AmLODIPine BESYLATE 2.5 MG TABLET PO SCH (08:09)
[2022-06-15 09:32] VITALS: BP 110/61
[2022-06-15 17:11] LABS: GLUCOMETER DEV NAME(LOC) 3EX.2; GLUCOSE,POINT OF CARE 253 MG/DL (70-110)
[2022-06-15 17:14] VITALS: BP 129/60
[2022-06-15 20:09] VITALS: BP 132/67
[2022-06-16 05:46] LABS: GLUCOMETER DEV NAME(LOC) 3EX.2; GLUCOSE,POINT OF CARE 174 MG/DL (70-110)
[2022-06-16] MEDS: MetFORMIN HCL 500 MG TABLET PO SCH (06:36)
[2022-06-16] MEDS: AmLODIPine BESYLATE 2.5 MG TABLET PO SCH (08:01)
[2022-06-16] MEDS: OLANZapine 10 MG TABLET PO SCH ×2 (08:01→16:39)
[2022-06-16] MEDS: VALPROIC ACID 250 MG/5 ML SOLUTION UDCUP PO SCH ×2 (08:01→16:40)
[2022-06-16 09:45] VITALS: BP 114/72
[2022-06-16 16:25] LABS: GLUCOMETER DEV NAME(LOC) 3EX.2; GLUCOSE,POINT OF CARE 272 MG/DL (70-110)
[2022-06-16 16:26] VITALS: BP 133/80
[2022-06-17 06:46] LABS: GLUCOMETER DEV NAME(LOC) 3EX.2; GLUCOSE,POINT OF CARE 152 MG/DL (70-110)
[2022-06-17] MEDS: MetFORMIN HCL 500 MG TABLET PO SCH (07:07)
[2022-06-17 08:01] VITALS: BP 116/58
[2022-06-17] MEDS: VALPROIC ACID 250 MG/5 ML SOLUTION UDCUP PO SCH ×2 (08:07→16:17)
[2022-06-17] MEDS: OLANZapine 10 MG TABLET PO SCH ×2 (08:07→16:17)
[2022-06-17] MEDS: AmLODIPine BESYLATE 2.5 MG TABLET PO SCH (08:07)
[2022-06-17 16:05] VITALS: BP 124/63
[2022-06-17 16:26] LABS: GLUCOMETER DEV NAME(LOC) 3EX.2; GLUCOSE,POINT OF CARE 262 MG/DL (70-110)
[2022-06-18] MEDS: MetFORMIN HCL 500 MG TABLET PO SCH (06:47)
[2022-06-18 07:01] LABS: GLUCOMETER DEV NAME(LOC) 3EX.2; GLUCOSE,POINT OF CARE 162 MG/DL (70-110)
[2022-06-18] MEDS: AmLODIPine BESYLATE 2.5 MG TABLET PO SCH (08:40)
[2022-06-18] MEDS: VALPROIC ACID 250 MG/5 ML SOLUTION UDCUP PO SCH (08:40)
[2022-06-18] MEDS: OLANZapine 10 MG TABLET PO SCH (08:40)
[2022-06-18] MEDS ORDERED: BuPROPion HCL 100 MG SR TABLET PO SCH (09:00)
[2022-06-18 09:27] VITALS: BP 121/81
[2022-06-18] MEDS ORDERED: BUPR-225 PO (10:50)
[2022-06-18] MEDS ORDERED: VALP250S23 PO (10:50)
[2022-06-18] MEDS ORDERED: OLAN10 PO (10:50)
== END 2022-06-18 18:06 | disposition home or self-care (01) | DRG 750 ==
LOC: EMS 16:20 → 3EC 20:27
PROVIDERS: ADMIT Psychiatry & Neurology Child & Adolescent Psychiatry; ATTEND Psychiatry & Neurology Child & Adolescent Psychiatry
PROC: 3E02340 Introduction of Influenza Vaccine into Muscle, Percutaneous Approach (ICD-10-PCS; principal; 2022-06-03)
PROC: 3E0234Z Introduction of Serum, Toxoid and Vaccine into Muscle, Percutaneous Approach (ICD-10-PCS; 2022-06-03)
DX: F20.0 Paranoid schizophrenia (principal); E11.9 Type 2 diabetes mellitus without complications; Z23 Encounter for immunization; E78.5 Hyperlipidemia, unspecified; I10 Essential (primary) hypertension; Z79.899 Other long term (current) drug therapy; Z87.891 Personal history of nicotine dependence; Z20.822 Contact with and (suspected) exposure to COVID-19
CPT/HCPCS: 80053; 80061; 80164; 80307; 81001; 82962; 83036; 84443; 85025; 87081; 99285; G0480